=== PATIENT | male | born 1965 | race Two or more races ===

== ENCOUNTER 2018-08-24 00:58 | Outpatient (CLI) | payer BC | END 2018-08-24 23:59 | disposition home or self-care (01) | LOC: DIABETIC 00:58 | PROVIDERS: ATTEND Family Medicine | DX: E11.65 Type 2 diabetes mellitus with hyperglycemia (principal); Z79.82 Long term (current) use of aspirin; Z79.84 Long term (current) use of oral hypoglycemic drugs; Z91.041 Radiographic dye allergy status; Z91.011 Allergy to milk products; Z91.018 Allergy to other foods | CPT/HCPCS: G0108 ==

== ENCOUNTER 2018-10-05 01:46 | Outpatient (CLI) | payer BC | END 2018-10-05 23:59 | disposition home or self-care (01) | LOC: DIABETIC 01:46 | PROVIDERS: ATTEND Family Medicine | DX: E11.65 Type 2 diabetes mellitus with hyperglycemia (principal); Z79.82 Long term (current) use of aspirin; Z79.84 Long term (current) use of oral hypoglycemic drugs; Z91.041 Radiographic dye allergy status; Z91.011 Allergy to milk products; Z91.018 Allergy to other foods | CPT/HCPCS: G0108 ==

== ENCOUNTER 2019-01-04 04:55 | Outpatient (CLI) | payer BC | END 2019-01-04 23:59 | disposition home or self-care (01) | LOC: DIABETIC 04:55 | PROVIDERS: ATTEND Family Medicine | DX: E11.65 Type 2 diabetes mellitus with hyperglycemia (principal); Z79.84 Long term (current) use of oral hypoglycemic drugs; Z91.041 Radiographic dye allergy status | CPT/HCPCS: G0108 ==

== ENCOUNTER 2019-07-06 01:13 | Outpatient (CLI) | payer BC | END 2019-07-06 23:59 | disposition home or self-care (01) | LOC: DIABETIC 01:13 | PROVIDERS: ATTEND Family Medicine | DX: E11.69 Type 2 diabetes mellitus with other specified complication (principal) | CPT/HCPCS: G0108 ==

== ENCOUNTER 2023-12-08 23:03 | Emergency (ER) | payer BC ==
[~2023-12-08] VITALS: Ht 162.6 cm; Wt 96.0 kg
[2023-12-08 23:18] VITALS: BP 148/93; PULSE 83; RESP 20; TEMP 98.9; O2SAT 98
[2023-12-08 23:57] LABS: MEAN PLATELET VOLUME 7.2 FL (7.4-10.4); RED BLOOD COUNT 5.19 X10'6 (4.70-6.10); RED CELL DISTRIBUTION WIDTH 13.9 % (11.5-14.5)
[2023-12-08 23:58] LABS: BASOPHILS # (AUTO) 0.1 X10'3 (0-0.2); BASOPHILS % (AUTO) 1.2 % (0-1); EOSINOPHILS # (AUTO) 0.4 X10'3 (0-0.9); EOSINOPHILS % (AUTO) 5.6 % (0-6); HEMATOCRIT 45.8 % (42.0-52.0); HEMOGLOBIN 15.9 g/dl (14.0-17.9); LYMPHOCYTES # (AUTO) 1.7 X10'3 (1.1-4.8); LYMPHOCYTES % (AUTO) 23.1 % (21-51); MEAN CORPUSCULAR HEMOGLOBIN 30.7 PG (27.0-31.0); MEAN CORPUSCULAR HGB CONC 34.8 g/dL (33.0-36.5); MEAN CORPUSCULAR VOLUME 88.3 FL (78-98); MONOCYTES # (AUTO) 0.5 X10'3 (0-0.9); MONOCYTES % (AUTO) 7.2 % (2-12); NEUTROPHILS # (AUTO) 4.7 X10'3 (1.8-7.7); NEUTROPHILS % (AUTO) 62.9 % (42-75); PLATELET COUNT 172 X10'3 (140-440); WHITE BLOOD COUNT 7.5 X10'3 (4.5-11.0)
[2023-12-09 00:21] LABS: ALBUMIN 3.8 G/DL (3.4-5.0); ANION GAP 11 (8-16); BLOOD UREA NITROGEN 20 MG/DL (7-18); BUN/CREATININE RATIO 20.2 (10.0-20.0); CHLORIDE 103 MMOL/L (99-107); CREATININE 0.99 MG/DL (0.60-1.10); GLUCOSE 242 MG/DL (70-104); POTASSIUM 4.1 MMOL/L (3.5-5.1); PRO BRAIN NATRIURETIC PEPTIDE 63 PG/ML (0-125); SODIUM 139 MMOL/L (135-145); TOTAL CARBON DIOXIDE 25.4 MMOL/L (24-32); eCRCL 67 ML/MIN; eGFR 77 ML/MIN
[2023-12-09] MEDS: aspirin 325mg tablet PO ONE (01:02)
== END 2023-12-09 01:06 | disposition home or self-care (01) ==
LOC: ER 23:03
DX: R07.89 Other chest pain (principal); I10 Essential (primary) hypertension; E11.9 Type 2 diabetes mellitus without complications; Z91.041 Radiographic dye allergy status
CPT/HCPCS: 36415; 71045; 80048; 83880; 84484; 85025; 93005; 99285